=== PATIENT | female | born 1975 | race African-American/Black ===

== ENCOUNTER 2017-08-11 08:55 | Emergency (ER) | payer SELFPAY ==
[~2017-08-11] VITALS: Ht 177.8 cm; Wt 86.6 kg
[2017-08-11] MEDS ORDERED: Tetanus/Diptheria/Pertussis Vaccine 0.5ml Syr IM ONE (09:45)
[2017-08-11] MEDS ORDERED: Bacitracin Oint UD TOPIC ONE (09:45)
[2017-08-11 10:25] VITALS: BP 141/92
[2017-08-11 10:26] VITALS: BP 141/92
--- NOTE | 2017-08-11 14:28 | Emergency Room Report ---
History of Present Illness General Chief Complaint: Head Injury Source: Patient Present Illness HPI 41 yo F p/w forehead laceration / skin avulsion. states last night she tripped and fell. sustained cut to her R forehead but didnt come in until today. no loc. no current deleon. no n/v. no blurry vision. tetanus not UTD Allergies: Coded Allergies: No Known Allergies (Unverified , 08/11/17) Patient History Past Medical History: see triage record Past Surgical History: none Pertinent Family History: none Last Menstrual Period: 08/03/17 Now: No Reviewed Nursing Documentation: PMH: Agreed, PSxH: Agreed Nursing Documentation-PMH Past Medical History: No Stated History Review of Systems All Other Systems: negative except mentioned in HPI Physical Exam Vital Signs Date Time Temp Pulse Resp B/P (MAP) Pulse Ox O2 Delivery O2 Flow Rate FiO2 08/11/17 08:59 98.8 95 18 141/92 98 Room Air Sp02 EP Interpretation: reviewed, normal General Appearance: normal inspection, well appearing, no apparent distress, alert, GCS 15, non-toxic Head: other - R forehead with laceration/skin avulsion, no active bleeding, ~ 2cm. exposed subcutaneous tissue Eyes: bilateral eye normal inspection, bilateral eye PERRL, bilateral eye EOMI ENT: normal ENT inspection, normal pharynx, normal voice, moist mucus membranes Neck: normal inspection, full range of motion, supple Respiratory: normal inspection, lungs clear, normal breath sounds, no respiratory distress, no retraction, no wheezing, speaking full sentences, chest symmetrical Cardiovascular #1: normal inspection, regular rate, rhythm, no edema, normal capillary refill Cardiovascular #2: 2+ radial (R), 2+ radial (L) Gastrointestinal: normal inspection, non tender, soft, non-distended, no guarding Musculoskeletal: normal inspection, back normal, normal range of motion, non- tender Neurologic: normal inspection, alert, oriented x3, responsive, motor strength/ tone normal, sensory intact, normal gait, speech normal Psychiatric: normal inspection, judgement/insight normal, memory normal Skin: normal inspection, normal color, no rash, warm/dry, well hydrated, normal turgor Medical Decision Making Diagnostic Impression: Primary Impression: Forehead laceration Additional Impression: Skin avulsion ER Course DDX: Skin laceration/avulsion Plan: irrigate and clean wound. unable to closed wound as has skin avulsion and nothing to approximate. ER course: Patient has remained stable during ED stay. Wound was anesthesized and then deepy irrigated. steri strips and clean dressing applied. bacitracin. Tdap given Disposition: Patient is to be discharged to home. Patient is instructed to follow up with their primary care doctor within 5 days. Advised to keep area clean, apply bacitracin, and inevitable scar will form to use sunscreen/vitamin E. Please note that this Emergency Department Report was dictated using [employer] polisher technology software, occasionally this can lead to erroneous entry secondary to interpretation by the dictation equipment Last Vital Signs Date Time Temp Pulse Resp B/P (MAP) Pulse Ox O2 Delivery O2 Flow Rate FiO2 08/11/17 10:26 98.8 18 141/92 98 Room Air 08/11/17 10:25 88 Disposition: HOME, SELF-CARE Condition: Stable Scripts No Active Prescriptions or Reported Meds Referrals: NOT CHOSEN IPA/MD,REFERRING (PCP) Patient Instructions: Laceration Care, Adult, [id number] Additional Instructions: PLEASE APPLY NEOSPORIN TO YOUR WOUND DAILY AVOID SUN EXPOSURE AND APPLY SUN BLOCK PLEASE FOLLOW UP WITH YOUR DOCTOR IN 1-2 WEEKS FOR WOUND RECHECK Dani Moore M.D. Aug 11, 2017 14:28
== END 2017-08-11 10:22 | disposition home or self-care (01) ==
LOC: EMR 10:20
DX: S01.81XA Laceration without foreign body of other part of head, initial encounter (principal); Z23 Encounter for immunization; W01.0XXA Fall on same level from slipping, tripping and stumbling without subsequent striking against object, initial encounter; Y92.9 Unspecified place or not applicable
CPT/HCPCS: 90471; 90715; 99283

== ENCOUNTER 2018-08-10 12:54 | Emergency (ER) | payer OTHER ==
[~2018-08-10] VITALS: Ht 177.8 cm; Wt 86.2 kg
[2018-08-10] MEDS ORDERED: IBUPROFEN600 MG ORAL (14:24)
--- NOTE | 2018-08-10 14:24 | Emergency Room Report ---
History of Present Illness General Chief Complaint: Pain Source: Patient Present Illness HPI 42-year-old female presents to the emergency department complaining of 7 out of 10 in severity pain in the right shoulder times one month. Patient reports pain primarily radiates down the right arm however since yesterday she is beginning to have the pain also radiates anteriorly towards the chest. Patient reports certain movements will exacerbate her symptoms. She gets some relief during rest. Patient states that she was hoping that symptoms would resolve but they have not. Patient states that her primary care provider ordered an MRI of her shoulder however insurance declined due to not having x-rays performed prior. 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 Patient denies swelling in the arm she reports burning electrical shooting sensation down the right arm she states pain is intermittent in frequency. She denies warmth, erythema, rashes or previous injury/similar symptoms in this extremity. pt. states she has only taken Tylenol on several occasions with no relief. Denies neck pain or hx of neck problems. Allergies: Coded Allergies: No Known Allergies (Unverified , 08/11/17) Patient History Past Medical History: see triage record Past Surgical History: none Pertinent Family History: none Now: No Reviewed Nursing Documentation: PMH: Agreed; PSxH: Agreed Nursing Documentation-PMH Past Medical History: No History, Except For Review of Systems All Other Systems: negative except mentioned in HPI Physical Exam Vital Signs Date Time Temp Pulse Resp B/P (MAP) Pulse Ox O2 Delivery O2 Flow Rate FiO2 08/10/18 13:01 99.0 106 20 138/99 96 Room Air Sp02 EP Interpretation: reviewed, normal General Appearance: no apparent distress, alert, GCS 15, non-toxic Head: normocephalic, atraumatic Eyes: bilateral eye normal inspection, bilateral eye PERRL ENT: hearing grossly normal, normal voice Neck: full range of motion Respiratory: lungs clear, normal breath sounds, speaking full sentences Cardiovascular #1: regular rate, rhythm Gastrointestinal: non tender Musculoskeletal: back normal, gait/station normal, normal range of motion, tender - Right shoulder ttp, anteriorly in the axilla as well as laterally, no trapezius ttp. some ttp to the right pectoralis. pain with ROM, no TTp on palpation of the medial humerus area, elbow , forearm or wrist. no Swelling, no skin color changes. equal turkey farmer strength. Neurologic: alert, oriented x3, responsive, motor strength/tone normal, sensory intact, normal gait, speech normal, grossly normal Psychiatric: judgement/insight normal Skin: normal color, no rash, warm/dry, well hydrated Medical Decision Making EVER Attherber Dumont is my supervising Physician whom patient management has been discussed with. Diagnostic Impression: Primary Impression: Shoulder pain, right Qualified Codes: M25.511 - Pain in right shoulder ER Course 42-year-old female presents to the emergency department complaining of 7 out of 10 in severity pain in the right shoulder times one month. Patient reports pain primarily radiates down the right arm however since yesterday she is beginning to have the pain also radiates anteriorly towards the chest. Patient reports certain movements will exacerbate her symptoms. She gets some relief during rest. Patient states that she was hoping that symptoms would resolve but they have not. Patient states that her primary care provider ordered an MRI of her shoulder however insurance declined due to not having x-rays performed prior. 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 Patient denies swelling in the arm she reports burning electrical shooting sensation down the right arm she states pain is intermittent in frequency. She denies warmth, erythema, rashes or previous injury/similar symptoms in this extremity. pt. states she has only taken Tylenol on several occasions with no relief. Denies neck pain or hx of neck problems. Ddx considered but are not limited to Fracture, dislocation, contusion, Sprain/ Strain/Spasm, Rotator cuff injury, DVT, Phantom limb syndrome, neuropathy or impingement syndrome just to name a few. Vital signs: are WNL, pt. is afebrile H&PE are most consistent with musculoskeletal injury will perform imaging to r/ o fractures/dislocations. ORDERS: - X-ray Right shoulder 3 views - negative for fx, Dislocation, or significant soft tissue injury, per preliminary read in ED, and signed by EVER Montemayor , my supervising physician has reviewed, and agrees with my interpretation. ED INTERVENTIONS: - - Right arm arm Sling applied by veterinary surgery technologist. Pt. remains neurovascularly intact. DISCHARGE: At this time pt. is stable for d/c to home. Will provide printed patient care instructions, and any necessary prescriptions. Care plan and follow up instructions have been discussed with the patient prior to discharge. Other X-Ray Diagnostic Results Other X-Ray Diagnostic Results : X-Ray ordered: Right shoulder # of Views/Limited Vs Complete: 3 View Indication: Pain EP Interpretation: Yes EVER Xray: Interpretation reviewed, by supervising MD, and agrees with findings. Interpretation: no dislocation, no soft tissue swelling, no fractures Impression: No acute disease Electronically Signed by: Jyoti Montemayor PA-C Last Vital Signs Date Time Temp Pulse Resp B/P (MAP) Pulse Ox O2 Delivery O2 Flow Rate FiO2 08/10/18 14:09 99.0 08/10/18 13:01 106 20 138/99 96 Room Air Disposition: HOME, SELF-CARE Condition: Stable Scripts Ibuprofen* (MOTRIN*) 600 Mg Tablet 600 MG ORAL THREE TIMES A DAY, #30 TAB 0 Refills Prov: Jyoti Montemayor 08/10/18 Referrals: NOT CHOSEN IPA/MD,REFERRING (PCP) Patient Instructions: Shoulder Pain, [id number] Additional Instructions: Take medications as directed. Follow up with an [facility] in 3-5 days, even if your symptoms have resolved. If symptoms persist MRI may be required at the discretion of your PCP or Ortho Specialist. --Please review list of primary care clinics, if you do not already have a primary care provider who can give you an Orthopedic Referral. Return sooner to ED if new symptoms occur, or current symptoms become worse. Do not drink alcohol, drive, or operate heavy machinery while taking [place] as this may cause drowsiness. - Please note that this Emergency Department Report was dictated using [employer] machine fabric cutter technology software, occasionally this can lead to erroneous entry secondary to interpretation by the dictation equipment. Jyoti Montemayor Aug 10, 2018 14:24
[2018-08-10 14:33] VITALS: BP 129/97
[2018-08-10 14:36] VITALS: BP 129/97
--- NOTE | 2018-08-11 09:10 | Diagnostic Imaging Report ---
Indication: Right shoulder pain Findings: 3 views of the right shoulder were obtained. No acute fractures, malalignment, erosions or periostitis are identified. Soft tissues are unremarkable. Impression: Negative for acute injury
== END 2018-08-10 14:37 | disposition home or self-care (01) ==
LOC: EMR 13:24
DX: M25.511 Pain in right shoulder (principal)
CPT/HCPCS: 99283